=== PATIENT | female | born 1955 | race Two or more races ===

== ENCOUNTER → 2017-05-26 | Outpatient (CLI) | payer BC ==
[~2017-05-26] VITALS: Ht 154.9 cm; Wt 76.2 kg
[~2017-05-26] MED LIST: BUDE160A3 IN; CEPH500C PO; DESM0.1T2 PO; DIPHENOXYLATE W/ATROPINE 2.5 MG TAB ONE; ESOM40CA39 PO; HYDR10TA PO; LEVO100T8 PO
== END | disposition home or self-care (01) ==
LOC: Rad HDHVI 08:34
PROVIDERS: ATTEND Internal Medicine Cardiovascular Disease
DX: I50.23 Acute on chronic systolic (congestive) heart failure (principal); I34.0 Nonrheumatic mitral (valve) insufficiency
CPT/HCPCS: 78452; 93017; 93306; 96374; A9500

== ENCOUNTER → 2017-06-14 | Outpatient (CLI) | payer BC ==
[~2017-06-14] MED LIST changes: -DIPHENOXYLATE W/ATROPINE 2.5 MG TAB ONE
[2017-06-15 13:14] LABS: Hepatitis B Surface Antibody Negative
== END | disposition home or self-care (01) ==
LOC: LAB 10:13
PROVIDERS: ATTEND Internal Medicine Cardiovascular Disease
DX: Z11.4 Encounter for screening for human immunodeficiency virus [HIV] (principal); K75.9 Inflammatory liver disease, unspecified; R79.89 Other specified abnormal findings of blood chemistry; E88.01 Alpha-1-antitrypsin deficiency; K74.5 Biliary cirrhosis, unspecified
CPT/HCPCS: 36415; 82390; 82728; 86703; 86704; 86706; 86708; 86803; 87340

== ENCOUNTER → 2019-02-26 | Outpatient (CLI) | payer MEDICARE ==
[~2019-02-26] VITALS: Ht 154.9 cm; Wt 72.1 kg
[~2019-02-26] MED LIST changes: +ADENOSINE 61 MG in GIVE UN-DILUTED 0 ML IV ONE; +ADENOSINE 90 MG/30 ML INJ IV ONE; -DESM0.1T2 PO; +[UNRECOGNIZED DRUG - CODE] PO
== END | disposition home or self-care (01) ==
LOC: Rad HDHVI 13:01
PROVIDERS: ATTEND Internal Medicine Cardiovascular Disease
DX: J44.9 Chronic obstructive pulmonary disease, unspecified (principal); E03.9 Hypothyroidism, unspecified; E11.9 Type 2 diabetes mellitus without complications; R07.89 Other chest pain
CPT/HCPCS: 78452; 93005; 93306; 96374; 96375; A9500; J0153

== ENCOUNTER → 2019-12-13 | Outpatient (CLI) | payer MEDICARE ==
[~2019-12-13] MED LIST changes: -ADENOSINE 61 MG in GIVE UN-DILUTED 0 ML IV ONE; -ADENOSINE 90 MG/30 ML INJ IV ONE; +HYDR-4792 PO; -HYDR10TA PO
== END | disposition home or self-care (01) ==
LOC: Rad HDHVI 09:58
PROVIDERS: ATTEND Internal Medicine Cardiovascular Disease
DX: R06.02 Shortness of breath (principal); I10 Essential (primary) hypertension; R42 Dizziness and giddiness
CPT/HCPCS: 93306

== ENCOUNTER → 2020-02-04 | Outpatient (CLI) | payer MEDICARE ==
[~2020-02-04] MED LIST changes: +HYDR-4623 PO; -HYDR-4792 PO; +IOHEXOL 350 MG/ML 100ML IJ ONE; +SODIUM CHLORIDE 0.9% 250 ML IV ONE
[2020-02-04 10:30] VITALS: BP 135/60
[2020-02-04 12:41] VITALS: BP 133/67
== END | disposition home or self-care (01) ==
LOC: Rad HDHVI 10:24
PROVIDERS: ATTEND Internal Medicine Cardiovascular Disease
DX: I25.10 Atherosclerotic heart disease of native coronary artery without angina pectoris (principal); R07.9 Chest pain, unspecified; J98.11 Atelectasis; I70.0 Atherosclerosis of aorta; K55.1 Chronic vascular disorders of intestine
CPT/HCPCS: 71260; 96360; G0463; Q9967

== ENCOUNTER → 2020-02-14 | Outpatient (CLI) | payer MEDICARE ==
[~2020-02-14] VITALS: Ht 154.9 cm; Wt 82.1 kg
[~2020-02-14] MED LIST changes: +ADENOSINE 69 MG in GIVE UN-DILUTED 0 ML IV ONE; +ADENOSINE 90 MG/30 ML INJ IV ONE; -IOHEXOL 350 MG/ML 100ML IJ ONE; -SODIUM CHLORIDE 0.9% 250 ML IV ONE
== END | disposition home or self-care (01) ==
LOC: Rad HDHVI 12:46
PROVIDERS: ATTEND Internal Medicine Cardiovascular Disease
DX: E11.9 Type 2 diabetes mellitus without complications (principal); E03.9 Hypothyroidism, unspecified; Z82.49 Family history of ischemic heart disease and other diseases of the circulatory system
CPT/HCPCS: 78452; 93005; 96374; 96375; A9500; J0153

== ENCOUNTER → 2020-06-13 | Outpatient (CLI) | payer MEDICARE ==
[~2020-06-13] MED LIST changes: -ADENOSINE 69 MG in GIVE UN-DILUTED 0 ML IV ONE; -ADENOSINE 90 MG/30 ML INJ IV ONE
== END | disposition home or self-care (01) ==
LOC: Rad HDHVI 13:13
PROVIDERS: ATTEND Internal Medicine Cardiovascular Disease
DX: M17.11 Unilateral primary osteoarthritis, right knee (principal); M71.21 Synovial cyst of popliteal space [Baker], right knee; M89.8X8 Other specified disorders of bone, other site; M85.88 Other specified disorders of bone density and structure, other site; M25.561 Pain in right knee
CPT/HCPCS: 73700

== ENCOUNTER → 2020-10-09 | Outpatient (CLI) | payer MEDICARE | END | disposition home or self-care (01) | LOC: Rad HDHVI 13:36 | PROVIDERS: ATTEND Internal Medicine Cardiovascular Disease | DX: R07.89 Other chest pain (principal); R06.02 Shortness of breath | CPT/HCPCS: 93306 ==

== ENCOUNTER → 2021-08-19 | Outpatient (CLI) | payer MEDICARE ==
[~2021-08-19] VITALS: Ht 154.9 cm; Wt 86.2 kg
[~2021-08-19] MED LIST changes: +ADENOSINE 72 MG in GIVE UN-DILUTED 0 ML IV ONE; +ADENOSINE 90 MG/30 ML INJ IV ONE
== END | disposition home or self-care (01) ==
LOC: Rad HDHVI 13:28
PROVIDERS: ATTEND Internal Medicine Cardiovascular Disease
DX: R00.2 Palpitations (principal); I10 Essential (primary) hypertension; E78.5 Hyperlipidemia, unspecified; J44.9 Chronic obstructive pulmonary disease, unspecified; R06.02 Shortness of breath; Z82.49 Family history of ischemic heart disease and other diseases of the circulatory system
CPT/HCPCS: 78452; 93005; 96374; 96375; A9500; J0153